=== PATIENT | female | born 1995 | race Two or more races ===

== ENCOUNTER 2020-02-19 16:45 | Emergency (ER) | payer OTHER ==
[~2020-02-19] VITALS: Ht 165.1 cm; Wt 78.5 kg
[2020-02-19 18:39] VITALS: Ht 165.1 cm; Wt 78.5 kg
[2020-02-19 19:56] VITALS: BP 120/78
== END 2020-02-19 19:56 | disposition home or self-care (01) ==
LOC: ED 16:45
DX: R07.89 Other chest pain (principal)